=== PATIENT | female | born 1950 | race Caucasian/White ===

== ENCOUNTER → 2017-07-21 | Outpatient (CLI) | payer MEDICARE | END | disposition home or self-care (01) | LOC: KCIC MRI 10:31 | DX: M48.02 Spinal stenosis, cervical region (principal); M50.30 Other cervical disc degeneration, unspecified cervical region | CPT/HCPCS: 72141 ==

== ENCOUNTER → 2021-05-14 | Outpatient (CLI) | payer MEDICARE ==
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
== END ==
LOC: KCIC MRI 09:59
PROVIDERS: ATTEND Physician Assistant Medical
DX: M47.817 Spondylosis without myelopathy or radiculopathy, lumbosacral region (principal); M48.07 Spinal stenosis, lumbosacral region; M41.86 Other forms of scoliosis, lumbar region; D18.09 Hemangioma of other sites
CPT/HCPCS: 72148

== ENCOUNTER → 2021-06-04 | Outpatient (CLI) | payer MEDICARE ==
--- NOTE | 2021-06-05 10:40 | KCIC ---
EXAM: XR LUMBAR SPINE 2-3V 06/04/2021 11:30 AM CLINICAL INDICATION: Spondylolisthesis/back pain COMPARISON: MRI lumbar spine 05/14/2021 TECHNIQUE: Lateral, flexion, extension views of the lumbar spine FINDINGS: There are 5 nonrib-bearing lumbar vertebral bodies. No acute fracture. There is 5 mm nila listhesis of L4 on L5 which is unchanged in extension and increases to 8 mm in flexion. Disc space na rrowing is moderate at L5-S1 and mild elsewhere. There are anterior osteophytes throughout the lumbar spine, greatest at L1-L2. Severe facet arthrosis L4-L5. IMPRESSION: 1. Spondylolisthesis at L4-L5, mildly increased in flexion. 2. Multilevel degenerative disc disease, moderate at L5-S1 and mild elsewhere. 3. Severe facet arthrosis at L4-L5 Electronically signed by: Cassandra Puri MD (06/05/2021 10:37 AM) [id number]
== END ==
LOC: KCIC 11:20
PROVIDERS: ATTEND Neurological Surgery
DX: M51.37 Other intervertebral disc degeneration, lumbosacral region (principal); M43.16 Spondylolisthesis, lumbar region; M47.816 Spondylosis without myelopathy or radiculopathy, lumbar region; M48.07 Spinal stenosis, lumbosacral region; M25.78 Osteophyte, vertebrae
CPT/HCPCS: 72100